=== PATIENT | female | born 1930 | race Caucasian/White ===

== ENCOUNTER 2016-07-11 23:00 | Inpatient (IN) | payer MEDICARE ==
[~2016-07-11] VITALS: Ht 165.1 cm; Wt 73.2 kg
[2016-07-11] MEDS ORDERED: BUMEX 1 MG TAB1 MG PO (23:40)
[2016-07-11] MEDS ORDERED: VITAMIN B-1000 MCG/M SQ (23:42)
[2016-07-11] MEDS ORDERED: CYMBALTA30 MG PO (23:43)
[2016-07-11] MEDS ORDERED: EXELON 13.3 M13.3 MG TRANSDERM (23:44)
[2016-07-11] MEDS ORDERED: GLUCOSAMINE & C1 CAP PO (23:44)
[2016-07-11] MEDS ORDERED: LANOXIN125 MCG PO (23:46)
[2016-07-11] MEDS ORDERED: METOPROLOL TART50 MG PO (23:48)
[2016-07-11] MEDS ORDERED: LOMOTIL TABLET1 TAB PO (23:48)
[2016-07-11] MEDS ORDERED: CLARITIN 10 MG10 MG PO (23:49)
[2016-07-11] MEDS ORDERED: MELATONIN 3 MG1 TAB PO (23:49)
[2016-07-11] MEDS ORDERED: MULTIPLE VITAMI1 TA1 PO (23:50)
[2016-07-11] MEDS ORDERED: GLUCOPHAGE500 MG PO (23:50)
[2016-07-11] MEDS ORDERED: PRADAXA75 MG PO ×2 (23:51→23:52)
[2016-07-11] MEDS ORDERED: PRAVACHOL40 MG PO (23:52)
[2016-07-11] MEDS ORDERED: REQUIP1 MG PO (23:53)
[2016-07-11] MEDS ORDERED: ALDACTONE25 MG PO (23:54)
[2016-07-11] MEDS ORDERED: VITAMIN D31000 UNIT PO (23:55)
[2016-07-11] MEDS ORDERED: TRAZODONE HCL150 MG PO (23:55)
[2016-07-11] MEDS ORDERED: VITAMIN E200 UNI1 PO (23:56)
[2016-07-11] MEDS ORDERED: ATIVAN0.5 MG PO (23:59)
[2016-07-12] MEDS ORDERED: NITROSTAT0.4 MG SL (00:02)
[2016-07-12] MEDS ORDERED: ULTRAM50 MG PO (00:02)
[2016-07-12] MEDS ORDERED: TYLENOL W/CODEI1 TAB PO (00:03)
[2016-07-12] MEDS ORDERED: ACETAMINOPHEN325 MG PO (00:04)
--- NOTE | 2016-07-12 00:33 | NUR ---
ARRIVED VIA WHEELCHAIR AND ASSISTED VAN FROM [place] AT 2300, ALERT AND ORIENTED TO SELF, CLAIMING TO BE THE PRESIDENT OF [employer], MEDICATIONS ENTERED, LABS ORDERED, UNABLE TO CONTACT FAMILY FOR CONSENTS; VOICE MAILBOX NOT SETUP, PHYSICIAN CALLED, ASSESSMENT HISTORY DEFERED UNTIL ABLE TO SPEEK WITH FAMILY, THREE RINGS ARE UNABLE TO BE REMOVED.
[2016-07-12 04:54] VITALS: BP 120/73
[2016-07-12 06:31] LABS: BASOPHILS 0.3 % (0.0-2.0); EOSINOPHILS 1.3 % (0-7); HEMATOCRIT 40.4 % (36.0-48.0); HEMOGLOBIN 13.5 g/dL (12-16); IMMATURE GRANULOCYTES 1.1 % (0-5); LYMPHOCYTES 30.6 % (15-50); MCH 29.3 pg (26.0-34.0); MCHC 33.4 g/dL (31.0-37.0); MCV 87.8 fL (80.0-100.0); MEAN PLATELET VOLUME 10.4 fL (7.4-10.4); MONOCYTES 9.7 % (2-11); PLATELET COUNT 130 10x3/uL (130-400); RDW 14.1 % (11.5-14.5); WBC 10.3 10x3/uL (4.8-10.8)
[2016-07-12 06:44] LABS: HEMOGLOBIN A1C 6.9 % (4.8-6.0)
[2016-07-12 06:49] LABS: ALBUMIN 3.3 g/dL (3.4-5.0); ANION GAP 12.6 mmol/L (8-16); BILIRUBIN - TOTAL 1.45 mg/dL (0.2-1.3); CARBON DIOXIDE 29.7 mmol/L (21.0-32.0); CHOL - HDL RATIO 4.2 ratio (2.3-4.1); CREATININE - SERUM 1.7 mg/dL (0.6-1.3); LDL-HDL RATIO 1.9 ratio (1.5-3.5); POTASSIUM - SERUM 3.3 mmol/L (3.5-5.1); PROTEIN - SERUM 7.3 g/dL (6.4-8.2); THYROID STIMULATING HORMONE 3.32 uIU/mL (0.36-3.74)
--- NOTE | 2016-07-12 07:30 | NUR ---
B) PATIENT IS AWAKE AND ALERT, SHE IS PLEASANT, SHE IS [place] AND SHE HAS BEEN TELLING EVERYONE THAT SHE LOVES THEM. DAIRY SCIENTIST STATED SHE WAS TELLING THEM THAT SHE WOULD GIVE THEM A MILLION DOLLARS, SHE HAS NOT SAID ANY OF THAT AT THIS TIME TO DAY SHIFT, BUT TELLS EVERYONE SHE LOVES THEM. SHE IS LABILE AND SHE LAUGHS THEN SHE BECOMES TEARFUL. PATIENT DOES NOT AMBULATE, BUT SHE DOES SIT IN A W/C AND CAN SELF PROPEL. SHE CAN STAND TO TRANSFER WITH ASSIST. I) PROVIDE PRESCRIBED MEDS AND REDIRECT NEEDED. R) PATIENT IS ORIENTED TO HER NAME ONLY, SHE DOES HAVE CONFUSION. P) CONTINUE PLAN OF CARE.
[2016-07-12 07:46] VITALS: BP 108/65
[2016-07-12 09:00] VITALS: BP 108/65
[2016-07-12 09:13] VITALS: BP 108/65
--- NOTE | 2016-07-12 09:19 | NUR ---
ATTEMPTED TO CALL PATIENT'S POINT OF CONTACT TO GET VERBAL CONSENTS AND HISTORY.
--- NOTE | 2016-07-12 11:03 | NUR ---
RECEIVED VERBAL CONSENTS BY PATIENT.
--- NOTE | 2016-07-12 11:24 | NUR ---
OBTAINED URINE FOR UA AND C&S, WILL TAKE TO LAB.
[2016-07-12 11:34] LABS: APPEARANCE CLEAR (CLEAR); BILIRUBIN NEGATIVE (NEGATIVE); COLOR YELLOW (YELLOW); GLUCOSE NEGATIVE (NEGATIVE); KETONE NEGATIVE (NEGATIVE); LEUKOCYTE ESTERASE NEGATIVE (NEGATIVE); NITRITE NEGATIVE (NEGATIVE); PROTEIN NEGATIVE (NEGATIVE); UROBILINOGEN NORMAL (NORMAL)
--- NOTE | 2016-07-12 11:40 | NUR ---
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 PROVIDED THEM WITH OUR PHONE NUMBER, HOURS TO CALL TO SPEAK TO HER, DAYS AND HOURS TO VISIT AND THEY PROVIDED A CODE WORD TO USE FOR SECURITY.
--- NOTE | 2016-07-12 13:00 | NUR ---
EMERGENCY DEPARTMENT DID COME TO STOCK LIFTER PATIENT'S BELONGINGS, SHE DOES STILL HAVE ON THREE RINGS, BUT SHE IS TOO EDEMATOUS TO REMOVE. TWO ARE ON ONE FINGER ONE IS WHITE METAL WITH THREE CLEAR STONES WITH TWO RECTANGULAR BAGUETTE STONES, THE OTHER IS WHITE METAL WITH 7 CLEAR STOMES, THE THIRD RING IS WHITE METAL WITH 2 SMALL CLEAR STONES AND THE CENTER STONE IS MISSING PRIOR TO HER ARRIVAL HERE.
[2016-07-12 19:30] VITALS: BP 105/54
--- NOTE | 2016-07-13 00:58 | NUR ---
B) Recieved sitting in the day room watching TV, alert and oriented to self, confused and unaware of surroundings, I) Administered perscribed medications, redirected as needed, R) Medication compliant, calm and cooperative with staff, P) continue plan of care, continue to monitor.
[2016-07-13 07:30] VITALS: BP 120/47
--- NOTE | 2016-07-13 13:29 | NUR ---
PT VERY LABILE AND JUMPS FROM TEARFUL, TO COOPERATIVE, TO AGGRESSIVE. PT IS GRANDIOSE AND MAKING DELUSIONAL STATEMENTS ABOUT BEING A "MCGHEE". PT "DISMISSES AND FIRES" ANY STAFF THAT DOES NOT DO WHAT SHE WANTS WHEN SHE WANTS. PT YELLING AND CURSING AT STAFF FOR NOT REMOVING ALL OTHER PTS FROM THE ROOM. EDUCATED ON APPROPRIATE BEHAVIOR BUT SHE DOES NOT UNDERSTAND AND REFUSES TO LISTEN. PT YELLING AT OTHER PTS AGAIN EDUCTED ON APPROPRIATE BEHAVIOR. ADMINISTERED MEDICATIONS AND PT TOOK ALL MEDICATIONS EXCEPT FOR HER POTASSIUM. EDUCATED ON IMPORTANCE OF MEDICATIONS BUT PT STILL REFUSED. PT REFUSES TO ELEVATE LEGS. WOUND CONSULT ORDERED FOR HER LEGS. PT PUT ON 1 CUP OF WATER PER HOUR PER DR. LAGUERRE DUE TO RISK OF INCREASED EDEMA AND PT'S NON-COMPLIANCE WITH ELEVATING LEGS AND ALLERGY TO LASIX. FALL PRECAUTIONS MAINTAINED. WILL CONTINUE TO MONITOR AND CONTINUE WITH PLAN OF CARE.
[2016-07-13 19:30] VITALS: BP 180/87
--- NOTE | 2016-07-13 19:48 | NUR ---
RECEIVED IN DAINING ROOM SETTING AT TABLE BY HERSELF EATING A SALAD. NOT VERBALIZING HER NEEDS AT THIS TIME. USES HANDS TO ATTEMPT TO ANSWER QUESTIONS. CALM AND COOPERATIVE WITH CARE AND ASSESSMENTS. ENCOURAGE TO VERBALIZE NEEDS. CONTINUES TO SET AT TABLE EATING. CONTINUE PLAN OF CARE
[2016-07-14 06:29] LABS: CALCIUM 9.3 mg/dL (8.5-10.1); CARBON DIOXIDE 30.3 mmol/L (21.0-32.0); CREATININE - SERUM 1.4 mg/dL (0.6-1.3); DIGOXIN 0.67 ng/mL (0.90-2.00); POTASSIUM - SERUM 3.3 mmol/L (3.5-5.1)
[2016-07-14 11:40] VITALS: BP 133/56
[2016-07-14 13:47] LABS: FOLATE (FOLIC ACID) - SERUM 10.6 ng/mL (>3.0)
--- NOTE | 2016-07-14 13:58 | PSY ---
PATIENT NAME:JEREMIAS PERALES MEDICAL RECORD: [id number] : 30 LOCATION:[facility] ADMISSION DATE: 07/11/16 ACCOUNT: [id number] PSYCHIATRIC EVALUATION DATE OF EVALUATION: 07/13/16 Psychiatric Evaluation IDENTIFYING DATA: The patient is 85 years old and she is admitted to the hospital on a voluntary basis. CHIEF COMPLAINT: Psychosis. HISTORY OF PRESENT ILLNESS: The patient is very bizarre and grandiose. She comes to us from [facility]. She has been telling people that she is the Sau[place] of [place] and in fact she has been talking with a fake Bulgarian accent. She also was claiming to be the president of [place], [place] and was telling all of the people, who work here, they are fired. She is not a very good historian. She is only speaking to me about things that are delusional and when I redirect her to ask about past history and other events that I want to know about, she either would not answer or tells me that she is unable to talk anymore. PAST MEDICAL HISTORY: Significant for diabetes, hypertension and congestive heart failure with atrial fibrillation. PAST PSYCHIATRIC HISTORY: Significant for an existing diagnosis of dementia, but no known history of psychiatric problems apart from that. I do have some early and second or even merchandising representative information that family is always believe she was mentally ill, but she never received any treatment. I do not have other details about that. FAMILY HISTORY: Unknown. ALLERGIES: SULFA AND LASIX. CURRENT MEDICATIONS: Include Bumex, Cymbalta, Exelon, digoxin, atropine, Lopressor, Claritin, melatonin, Glucophage, Pradaxa, Pravachol, Requip, Aldactone, trazodone, vitamin D3, vitamin E, Ultram And Tylenol with codeine. SOCIAL HISTORY: The patient lives at [facility]. She is . She does have adult children. She denies a history of drug or alcohol abuse and apart from this, I do not know of any other information and apart from this, I have no other information about her social or occupational functioning. MENTAL STATUS EXAMINATION: The patient is awake, alert and oriented to person and place only. Her mood is anxious. Her affect is constricted. Thought processes are disorganized and she has extensive delusional content and really is not cooperative with the mental status testing. She does deny that she wants to hurt herself or others as well as auditory and visual hallucinations. ASSETS: Supportive family members. LIABILITIES: Limited insight. 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 AXIS II: Deferred. AXIS III: Hypertension, diabetes, atrial fibrillation, chronic kidney disease, congestive heart failure. PLAN: At this time, the patient is clearly bizarre and delusional. What is not clear, is that she has an existing mental illness separate from the dementia. The symptoms that she is displaying are not entirely consistent with dementia, but at age 85, it is ____ for someone to be diagnosed with a chronic mental illness. I do plan to treat her symptomatically and gather more information from the family and by this, I mean, I will give her memory enhancing and mood stabilizing medications along with an antipsychotic medication. If she responds reasonably well to this, I will except to the outcome without being concerned about how to explain or label the symptoms. TRANSINT:[id number] Voice Confirmation ID: [id number] DOCUMENT ID: [id number] JARVIS MAGALLANES MD at 1358 CC: [id number] DICTATION DATE: 07/13/16 1229 TRANSMISSION SUPERINTENDENT: 07/13/16 1329 [facility] [place] [address] [place] [address]
--- NOTE | 2016-07-14 15:07 | NUR ---
RECEIVED THIS AM SITTING IN WHEELCHAIR IN HALLWAY AT NURSES STATION.IS ORIENTED TO PERSON AND YEAR.ATTEMPTED TO REORIENT TO PLACE WITH QUESTIONABLE RESULTS.IN TALKING WITH HER SHE REPORTS SHE IS 20 YEARS OLD AND IS THE NEXT GOD.LOWER EXTREMITIES SWOLLEN AND HAS SORES ON THEM.CALM TODAY AND SMILES ALOT,LOVES EVERYONE.WILL CONTINUE WITH PLAN OF CARE,MONITOR FOR CHANGES AND SAFETY.ALLOWS NURSE TO ELEVATE LEGS ON CHAIR FOR AWHILE.VISITED BY SKINCARE NURSE,ISIAH DALEY.
[2016-07-14 19:30] VITALS: BP 121/52
--- NOTE | 2016-07-14 19:45 | NUR ---
RECEIVED IN DINING ROOM. SETTING AT TABLE BY HERSELF READING A BOOK. CALM AND COOPERATIVE WITH CARE AND ASSESSMENT. CONFUSED. REDIRECT AND REORIENT NEEDED. CONTINUES TO SET QUIETLY BY HERSELF. CONTINUE PLAN OF CARE
--- NOTE | 2016-07-15 03:10 | NUR ---
RESTLESS IN ROOM. CLINBING OUT OF BED. ALARM SOUNDING. YELLING AT STAFF. VERBALLY ABUSIVE WITH REDIRECTION. TRANSFERED TO RECLINER AT NURSES STAION FOR ONE ON ONE CARE FOR SAFETY.
--- NOTE | 2016-07-15 08:12 | NUR ---
WOUND CARE CONSULT: PT HAS SCABS AND SORES ON BILATERAL LOWER EXTREMITIES (MORE ON THE LEFT). BILATERAL LE ARE EDEMATOUS. DURING THIS CONSULT PT WAS ALLOWING STAFF TO ELEVATE HER LEGS. RECOMMEND KEEPING LEGS ELEVATED WHILE UP IN CHAIR/WHEELCHAIR FREQUENTLY PT WILL ALLOW. HER BOTTOM IS EXCORIATED. CURRENTLY ZINC PASTE IS BEING USED DAILY AND NEEDED. RECOMMEND CHANGING TO CALMOSEPTINE CREAM TO ADDITIONAL PROTECTION FROM URINE/STOOL. WOUND CARE WILL CONTINUE TO MONITOR.
[2016-07-15 10:24] VITALS: Ht 165.1 cm; Wt 73.2 kg
--- NOTE | 2016-07-15 10:48 | NUR ---
Nutrition Note: Pt is eating 58% meal avg on a Diabetic diet. Will change diet to Regular to encourage po intake. Noted Glucose WNL. RD following.
--- NOTE | 2016-07-15 11:25 | NUR ---
Recieved this am, alert and oriented to her name but with grandiuos, delusion of being God, the BROOMCORN THRESHER of the facility and a Sau[place]. "I'm God, now go hither and tell everybody I'm 1000 years hold, if not you will ." Unable to refocus patient to reality, she continues with nonreality and " You all are fired without servance pay, dismiss yourselves." Very demanding but is labile and then will become quiet and cooperative. Compliant with medications. Self propels in wheelchair with functioning chair alarm in place. Participated in group. safety maintained. Continue plan of care.
--- NOTE | 2016-07-15 12:57 | PN ---
PATIENT:JEREMIAS PERALES MEDICAL RECORD: [id number] LOCATION:[facility] ADMISSION DATE: 07/11/16 PROGRESS NOTE DATE OF SERVICE: 07/14/2016 SUBJECTIVE: The patient's case was discussed with staff. She has no new complaint. OBJECTIVE: The patient is disorganized with limited insight about her condition. She denies that she would seek to harm herself or others, but she is still very delusional and insists that she is the nix of [place]. ASSESSMENT: No change in diagnoses. PLAN: At this point, I think I need additional history. Efforts will be made to contact the family. The patient has symptoms that would be consistent with a chronic mental illness, but there is no evidence that that is correct in the patient such a poor historian, it is difficult to determine if that is accurate. TRANSINT:[id number] Voice Confirmation ID: [id number] DOCUMENT ID: [id number] JARVIS MAGALLANES MD at 1257 CC: [id number] DICTATION DATE: 07/14/16 1403 PERMASTONE APPLICATOR: 07/14/16 2109 ADM IN [place] [id number] [place] [address]
[2016-07-15 13:55] VITALS: BP 131/66
--- NOTE | 2016-07-15 19:57 | NUR ---
RECEIVED IN DAYROOM. SETTING IN WHEELCHAIR. CONFUSED. ATTEMPTS TO STAND WITHOUT ASSIST. CALM AND COOPERATIVE WITH CARE AND ASSESSMENT. REDIRECT AND REORIENT NEEDED FOR SAFETY. CONTINUES TO SET IN WHEELCHAIR. CONTINUE PLAN OF CARE
[2016-07-15 20:00] VITALS: BP 127/59
--- NOTE | 2016-07-16 08:41 | PN ---
PATIENT:JEREMIAS PERALES MEDICAL RECORD: [id number] LOCATION:[facility] ADMISSION DATE: 07/11/16 PROGRESS NOTE DATE OF SERVICE: 07/15/2016 Psychiatric Progress Note SUBJECTIVE: The patient's case was discussed with staff. She has no new complaint. OBJECTIVE: The patient is in good behavioral control with limited insight about her condition. She tolerates her medicines well. ASSESSMENT: No change in diagnoses. PLAN: The patient will be started on Seroquel for some psychotic symptoms. She will be monitored for clinical changes associated with its use. Her long-term prognosis is guarded. TRANSINT:[id number] Voice Confirmation ID: [id number] DOCUMENT ID: [id number] JARVIS MAGALLANES MD at 0841 CC: [id number] DICTATION DATE: 07/15/16 1302 CLAM BED WORKER: 07/15/16 2120 ADM IN [facility] [address] [place] [address]
--- NOTE | 2016-07-16 11:30 | NUR ---
B) Patient is awake and alert and she still has grandiose delusions of being the "President" and or "God" She makes bizarre statements such as if you do something for her she will tell you that "You are sacred" If on the other hand you do not do something that she requests she will say "You're fired" or she will say "You'll without reprehension" Patient does not like to be redirected. I) Provide prescribed meds and redirect to reality as needed. R) Patient self propels in the w/c if she wants to do it at other times she is demanding to be catered to at that moment. Patient can stand to assist with transfers and she is compliant with her medications. P) Continue plan of care.
--- NOTE | 2016-07-16 15:09 | NUR ---
Patient has been acting out, yelling out, demanding, saying she is "God" She is the "President" she is not redirecting and she is firing everyone and becoming beligerant and screaming about it. Patient was removed to the dining room away from others as she would not redirect. Ativan 0.5 mg IM given in right hip.
--- NOTE | 2016-07-16 15:40 | NUR ---
Patient is calmer and quieter, she has stopped yelling, but remains delusional saying she is the "President".
--- NOTE | 2016-07-17 01:07 | NUR ---
B) Recieved sitting in the dinning room away from the other patients, alert and oriented to self, tells everyone that she is the president or God and that she has fired all the staff, demanding and self entilted, I) Administered perscribed medications, redirected as needed, R) Medication compliant, diffcult to redirect, P) Continue plan of care, continue to monitor.
--- NOTE | 2016-07-17 07:00 | NUR ---
Patient sitting on toilet and she tried to get up by herself, urine was on the floor and she slipped and fell on the floor on right side. Patient c/o pain to right hip, no displacement, can move minimally. Called patient's family left message. Called Dr. Rios and xray right hip ordered. Patient's v/s T. 97.9, BP 142/81, R. 20, P. 79, SP02 94%, cleansed patient and assisted into a hospital gown.
[2016-07-17 08:00] VITALS: BP 115/45
--- NOTE | 2016-07-17 14:24 | PN ---
PATIENT:JEREMIAS PERALES MEDICAL RECORD: [id number] LOCATION:[facility]112 ADMISSION DATE: 07/11/16 PROGRESS NOTE DATE OF SERVICE: 07/16/2016 Psychiatric Progress Note SUBJECTIVE: The patient's case was discussed with staff. She has no new complaint. OBJECTIVE: The patient has not made any delusional statements today. I do not think that is evidence that the delusions are better just that she is not as inclined to verbalize them. I am certain if I asked her about her grandiose, believes she would acknowledge them. Nevertheless, based on the fact that she is not just simply making obituary orders to the staff and patients, under the delusional belief that she is the nix or president of [place], I must say she is better. She will be maintained on current medicines, which I have reviewed and her long-term prognosis is guarded. I would recommend periodic screenings regarding her level of impairment and home situation. I do anticipate she can be transitioned back to the [facility] soon. TRANSINT:[id number] Voice Confirmation ID: [id number] DOCUMENT ID: [id number] JARVIS MAGALLANES MD at 1424 CC: [id number] DICTATION DATE: 07/16/16 1248 CHLORINATOR: 07/16/16 1549 ADM IN [place] [id number] [place] [address]
--- NOTE | 2016-07-17 14:40 | NUR ---
B) Patient is awake and alert, she is oriented to herself, she continues to be grandiose with her delusions, firing and hiring, saying she is "God". She can stand and walk a few steps, but unsteady. She self propels in a w/c. I) Provide prescribed meds. R) Patient is compliant with meds and she is sitting away from peers and reading, interacts at times with staff and peers. P) Continue plan of care.
[2016-07-17 19:00] VITALS: BP 109/76
--- NOTE | 2016-07-18 02:52 | NUR ---
B) recieved sitting in a wheelchair in the day room, alert and oriented to self only, grandious delusions of being god and president, firing everyone who does not do what she wants. I) administered perscribed medication and redirected as needed, R) medication compliant, difficult to redirect, P) Continue plan of care.
[2016-07-18 08:00] VITALS: BP 143/66
--- NOTE | 2016-07-18 14:39 | NUR ---
B) Patient is awake and alert, she is oriented to her name, although, she has grandiose delusions that she is the [place] or the President. She screams and yells and demands. Physical Therapy signed off on her today as she can ambulate very well without their assist, but with nursing staff she says "I can't" and feigns that she is not able, she has told everyone she couldn't move today because "I have a broken hip" Patient does not have a broken hip. Patient has had multiple loose stools and did provide her lomotil, but she makes demands. "I would like lomotil before each meal" I) Provide prescribed meds and redirect as needed. R) Patient is compliant with medications, but she continues with labile mood either saying she will give staff millions of dollars or finring them. P) Continue plan of care.
[2016-07-18 19:30] VITALS: BP 180/88
--- NOTE | 2016-07-18 20:35 | NUR ---
B) Continues to believe she has multiple fractures from a fall two days ago when in fact she does not. States that she is quite miserable constantly. Then stated that she has been a God 8 times. "I am at [facility] and I am [facility]." "I'm very happy here and I'd like to stay here forever." Propels self around in wheelchair, refuses to try to ambulate with or without walker despite PT evaluation that patient can do so. States she has broken her back, shoulder, and elbow. I) Administer medications as ordered, reorient and redirect PRN. Educate to recognize reality versus fantasy. R) Delusional, grandiose, labile, compliant with medications which she requested be given to her crushed this evening in apple sauce. P) Continue to monitor per plan of care.
--- NOTE | 2016-07-18 22:07 | NUR ---
Given Ultram 50mg po PRN for complaints of hip and elbow pain.
--- NOTE | 2016-07-18 23:10 | NUR ---
Sleeping at this time, analgesic PRN given earlier deemed effective.
[2016-07-19 06:13] LABS: RAPID PLASMA REAGIN Non Reactive (Non Reactive)
--- NOTE | 2016-07-19 14:51 | NUR ---
(B)RECEIVED PATIENT IN HER ROOM. ORIENTED TO SELF ONLY. POOR INSIGHT INTO THE REASON FOR HOSPITALIZATION RELATING "I THINK I HAVE ULCERS. I HAS LOSS OF MEMORY." MOBILE ON UNIT IN WHEELCHAIR HOWEVER IS CAPABLE OF AMBULATING AEB PHYSICAL THRAPY SIGNING OFF D/T HER ABILITY TO AMBUALTE 200 FEET WITH NO ASSISTANCE REQUIRED. GRANDIOSE DELUSIONS AEB "DONATE A 100 MILLION TO PHYSICAL THERAPY. THEY WILL HAVE IT TOMORROW." TELLS STAFF THEY ARE GOING TO RECEIVE MILLIONS OF DOLLARS FOR ALL THE HELP THEY PROVIDE. TALKS OF MEETING MR KAJAL BURDICK AT [facility]. THAT HE GOES TO THE [facility] OF [facility]. (I)ADMINSITER MEDS AND MONITOR COMPLIANCE. REORIENT NEEDED. (R)MED COMPLIANT. POOR REORIENTATION AND DOES APPEAR TO BE ABLE TO SEPARATE REALITY FROM FANTASY. CONTINUES WITH DELUSIONS OF GRANDEUR. (P)CONTINUE POC AND MAINTAIN FALL PRECAUTIONS.
[2016-07-19 19:30] VITALS: BP 140/59
--- NOTE | 2016-07-20 00:59 | NUR ---
PATIENT IN DAYROOM, PLEASANT AND SMILING. ORIENTED TO SELF ONLY. STILL GRANDIOSE, SAYING "I'M GOING TO GIVE YOU TEN MILLION DOLLARS TOMORROW." COMPLIANT WITH MEDICATION. CONTINUE TO MONITOR, CONTINUE PLAN OF CARE
--- NOTE | 2016-07-20 06:10 | PN ---
PATIENT:JEREMIAS PERALES MEDICAL RECORD: [id number] LOCATION:[facility] ADMISSION DATE: 07/11/16 PROGRESS NOTE DATE OF SERVICE: 07/18/2016 SUBJECTIVE: The patient asks the examiner, he would like to have a hundred million dollars. She also states that she went [facility] the "[facility]". OBJECTIVE: On exam, the patient exhibits slightly elevated mood. Affect is expansive. Speech is tangential. Content of thought shows moderate delusional ideation. Sensorium is unchanged. ASSESSMENT: No change in diagnosis. PLAN: 1. We will maintain current medication. 2. Continue supportive therapy. TRANSINT:[id number] Voice Confirmation ID: [id number] DOCUMENT ID: [id number] CHARLIE BRASHER III, MD at 0610 CC: [id number] DICTATION DATE: 07/18/16 1150 SHELLFISH CHECKER: 07/18/16 1656 ADM IN [place] [id number] [place] [address]
[2016-07-20 10:51] VITALS: BP 113/75
--- NOTE | 2016-07-20 11:54 | NUR ---
RECEIVED THIS AM IN BED.TRANSFERS SELF TO WHEELCHAIR.IS ORIENTED TO SELF AND HOSPITAL BUT HAS NO INSITE INTO WHY SHE IS HERE.STATES,"I FELL 5 TIMES." ALSO STATES,"I AM THE PRESIDENT." WAS OBSERVED YELLING OUT ANGRIELY TO ANOTHER PATIENT THIS MORNING AT BREAKFAST TABLE AND STATED TO THIS NURSE "SHE NEVER SHUTS UP."WILL CONTINUE WITH PLAN OF CARE AND MONITOR FOR CHANGES AND SAFETY.
--- NOTE | 2016-07-20 19:48 | NUR ---
RECEIVED IN DAYROOM SETTING IN RECLINER WITH HER FEET UP WATCHING TV. PEERS AT HER SIDE. CALM AND COOPERATIVE WITH CARE AND ASSESSMENT. ORIENTED TO SELF ONLY. REDIRECT AND REORIENT NEEDED. CONTINUES TO SET QUIETLY WATCHING TV. CONTINUE PLAN OF CARE
[2016-07-21 08:10] VITALS: BP 143/103
[2016-07-21 09:30] VITALS: BP 142/88
--- NOTE | 2016-07-21 14:11 | PN ---
PATIENT:JEREMIAS PERALES MEDICAL RECORD: [id number] LOCATION:[facility]112 ADMISSION DATE: 07/11/16 PROGRESS NOTE DATE OF SERVICE: 07/17/2016 SUBJECTIVE: The patient's case was discussed with staff. She has no new complaint. OBJECTIVE: The patient is in good behavioral control with limited insight about her condition. She is still not eating adequately and still has a number of delusions. She is taking her medications and I am hopeful that over the next few days, it will become effective. ASSESSMENT: No change in diagnoses. PLAN: The patient will be treated with current medicines, but I am going to add Megace to the regimen to hopefully stimulate her appetite. TRANSINT:[id number] Voice Confirmation ID: [id number] DOCUMENT ID: [id number] JARVIS MAGALLANES MD at 1411 CC: [id number] DICTATION DATE: 07/17/16 1519 SWITCHBOARD OPERATOR: 07/17/16 1538 ADM IN [place] [id number] [place] [id number]
--- NOTE | 2016-07-21 17:06 | NUR ---
RECEIVED THIS AM IN BED.TRANSFERS SELF TO WHEELCHAIR.PROPELLS SELF IN WHEELCHAIR.IS ORIENTED TO SELF ONLY.THINKS SHE IS THE PRESIDENT AND AWARDS PEOPLE LARGE SUMS OF MONEY THEY CAN SPEND AT [facility].HAS BEEN CALM AND COOPERATIVE MOST OF DAY BUT DOES BECOME ANGRY WHEN SHE DOESN'T GET HER WAY,EX: WANTS TO WATCH [employer] PROGRAMS,BUT PEERS DON'T.WILL CONTINUE WITH PLAN OF CARE,MONITOR FOR CHANGES AND SAFETY.
--- NOTE | 2016-07-21 19:55 | NUR ---
RECEIVED IN DAYROOM. SETTING IN RECLINING CHAIR WITH HER FEET UP READING A BOOK. STATES PAIN AT 7 ART THIS TIME. CALM AND COOPERATIVE WITH CARE AND ASSESSMENTS. ENCOURAGE TO EXPRESS NEEDS AND FEELINGS. CONTINUE TO REST QUIETLY IN RECLINER. CONTINUE PLAN OF CARE
[2016-07-21 21:45] VITALS: BP 117/64
[2016-07-22 07:00] LABS: CALCIUM 9.3 mg/dL (8.5-10.1); CARBON DIOXIDE 31.2 mmol/L (21.0-32.0); CREATININE - SERUM 1.5 mg/dL (0.6-1.3); POTASSIUM - SERUM 4.2 mmol/L (3.5-5.1)
[2016-07-22 09:21] VITALS: BP 124/70
--- NOTE | 2016-07-22 09:30 | NUR ---
Nutrition Follow Up: Chart reviewed. Pt is eating 92% meal avg on a Regular diet. Wt loss 1# since admit. +BM 07/21/16. Meds noted including Megace, Vit B12, Vit E, Metformin, MV, Vit D, Bumex. Labs noted - BUN, Cr, Glucose slightly elevated. Pt with excellent po intake at this time. Rec continue current diet. Will continue to provide selective menus and honor food preferences. RD following.
--- NOTE | 2016-07-22 12:27 | NUR ---
B.) Received patient this am, alert and oriented to self only, has no insight to place, but states she is here for her memory and is " president " of this place. I.) Administer medications and monitor compliance. Redirect and reorient as need. Refocus to reality versus nonreality. Monitor safety. R.) Compliant with medications, grandiose delusions as evidence by " you are now rehired, 100 million dollars for you, and everyone here today, I'm your president." Continues with delusions of grandeur, unable to separate reality from nonreality. Self propels in w/c, safety maintained. P.) Continue plan of care.
--- NOTE | 2016-07-22 14:14 | PN ---
PATIENT:JEREMIAS PERALES MEDICAL RECORD: [id number] LOCATION:[facility] ADMISSION DATE: 07/11/16 PROGRESS NOTE DATE OF SERVICE: 07/21/2016 Psychiatric Progress Note SUBJECTIVE: The patient's case was discussed with staff. She has no new complaint. OBJECTIVE: The patient is in good behavioral control with limited insight about her condition. She tolerates her medicines well. ASSESSMENT: No change in diagnoses. PLAN: The patient is still having some delusions, but they are less intense. I am going to discontinue her trazodone secondary to inadequate amount of time she is sleeping. TRANSINT:[id number] Voice Confirmation ID: [id number] DOCUMENT ID: [id number] JARVIS MAGALLANES MD at 1414 CC: [id number] DICTATION DATE: 07/21/16 1429 REINFORCING METAL WORKER: 07/21/162006 ADM IN [facility] [address] [place] [address]
[2016-07-22 19:39] VITALS: BP 129/62
--- NOTE | 2016-07-22 19:53 | NUR ---
RECEIVED IN DAYROOM. SETTING IN RECLINING CHAIR WITH PEERS BY HER SIDE. WATCHING TV. NOT SOCIALIZING. NO GRANDIOSE STAEMENTS MADE THIS EVENING. CALM AND COOPERATIVE WITH CARE AND ASSESSMENT. CONTINUES TO SET CALMLY IN RECLINER. CONTINUE PLAN OF CARE
[2016-07-23 08:00] VITALS: BP 125/67
--- NOTE | 2016-07-23 16:49 | NUR ---
RECEIVED THIS AM SITTING IN WHEELCHAIR IN HALLWAY AT [facility].IS ORIENTED TO PERSON AND HOSPITAL ONLY.THINKS SHE IS THE PRESIDENT BUT REMEMBERS WATCHING THE PRESIDENTAL ADDRESS TO [place]ESS LAST NIGHT AND STATES" IT WAS WONDERFUL."AWARDED THIS NURSE A MILLION DOLLARS TO SPEND AT [facility].CALM AND COOPERATIVE.COMPLIANT WITH MEDS.SOCIALIZES WITH PEERS AND STAFF.WILL CONTINUE WITH PLAN OF CARE,MONITOR FOR CHANGES AND SAFETY.
[2016-07-23 20:00] VITALS: BP 132/86
--- NOTE | 2016-07-24 02:59 | NUR ---
PATIENT IN DAYROOM, WATCHING T.V. PATIENT ORIENTED TO PERSON AND PLACE, NOT TIME NOR SITUATION. PATIENT COMPLAINED OF BEING COLD AND HIP PAIN. GAVE PATIENT WARM BLANKET AND REPOSITIONED. PATIENT DELUSIONAL, OFFERING A MILLION DOLLARS. PATIENT REORIENTED. CONTINUE TO MONITOR, CONTINUE PLAN OF CARE.
[2016-07-24 08:10] VITALS: BP 120/61
--- NOTE | 2016-07-24 11:30 | NUR ---
B) Patient is alert and awake, she is oriented to herself only. She can self propel in her w/c and she can stand and assist with transfers. She can ambulate minimally. Patient has delusions of grandeur. I) Provide prescribed meds, redirect to appropriate behavior. R) Patient is compliant with meds, she keeps herself busy withreading. P) Continue plan of care.
--- NOTE | 2016-07-24 12:38 | PN ---
PATIENT:JEREMIAS PERALES MEDICAL RECORD: [id number] LOCATION:[facility] ADMISSION DATE: 07/11/16 PROGRESS NOTE DATE OF SERVICE: 07/22/2016 SUBJECTIVE: The patient's case was discussed with staff. She has no new complaint. OBJECTIVE: The patient denies intent to harm herself or others. She is still very delusional. ASSESSMENT: No change in diagnoses. PLAN: Current medicines and therapies have been reviewed. She will be treated with a slightly higher dose of Aricept. Her long-term prognosis is guarded. TRANSINT:[id number] Voice Confirmation ID: [id number] DOCUMENT ID: [id number] JARVIS MAGALLANES MD at 1238 CC: [id number] DICTATION DATE: 07/22/16 1427 FUR SEWER: 07/22/16 2231 ADM IN [place] [id number] [place] [address]
--- NOTE | 2016-07-24 12:38 | PN ---
PATIENT:JEREMIAS PERALES MEDICAL RECORD: [id number] LOCATION:[facility] ADMISSION DATE: 07/11/16 PROGRESS NOTE DATE OF SERVICE: 07/23/2016 SUBJECTIVE: The patient's case was discussed with staff. She has no new complaint. OBJECTIVE: The patient is in good behavioral control with limited insight about her condition. She is much less delusional than she has previously been. In fact, she is answering to her name as opposed to insisting that we call her nix or Mrs. president. ASSESSMENT: No change in diagnoses. PLAN: The patient's current medications have been reviewed and will be maintained. She clearly has improved significantly. Her long-term prognosis is guarded. TRANSINT:[id number] Voice Confirmation ID: [id number] DOCUMENT ID: [id number] JARVIS MAGALLANES MD at 1238 CC: [id number] DICTATION DATE: 07/23/16 1405 DRUG AND ALCOHOL COUNSELOR: 07/23/16 1826 ADM IN [place] [id number] [place] [address]
[2016-07-24 19:30] VITALS: BP 130/71
--- NOTE | 2016-07-25 00:09 | NUR ---
Patient in dayroom, in corner looking at the books. She is oriented to person, place, time. When asked why she was here, she said because she has alzheimer's. She did say she got mad and shouldn't have. She said the other residents were making too much noise and she became very upset. Next time, she said she will go to the corner and read. She is pleasant, non-grandious at this time. She does have complaints of pain, 10 per pain scale, pain in hip and back. 50 mg of Ultram given p.o.
[2016-07-25 09:40] VITALS: BP 118/79
--- NOTE | 2016-07-25 11:05 | NUR ---
B) Patient is calm and cooperative, she is listening to redirection, she keeps herslef entertained by reading or coloring. Patient has had two loose BMs today, held am senna. Provided hemorrhoid suppository, but patient was not able to hold it and pushed it out. Patient has not made any reference to being the President or [place] today, she self propels in the w/c and she is has been interacting well in groups and with staff and peers. I) Provide prescribed medications. R) Patient is compliant with meds and unit milieu. She has not made any grandiose statements today. P) Continue plan of care.
--- NOTE | 2016-07-25 13:42 | PN ---
PATIENT:JEREMIAS PERALES MEDICAL RECORD: [id number] LOCATION:[facility] ADMISSION DATE: 07/11/16 PROGRESS NOTE DATE OF SERVICE: 07/24/2016 SUBJECTIVE: The patient's case was discussed with staff. She has no new complaint. OBJECTIVE: The patient is in good behavioral control and has no thoughts of harming herself or others. She is generally tolerating her medicines well. ASSESSMENT: No change in diagnoses. PLAN: I anticipate the patient can be transitioned out of the hospital soon if this level of improvement is maintained. Her long-term prognosis is guarded. TRANSINT:[id number] Voice Confirmation ID: [id number] DOCUMENT ID: [id number] JARVIS MAGALLANES MD at 1342 CC: [id number] DICTATION DATE: 07/24/16 1249 MUSEUM EXHIBIT TECHNICIAN: 07/24/162037 ADM IN [place] [id number] [place] [id number]
[2016-07-25 19:30] VITALS: BP 126/79
--- NOTE | 2016-07-26 02:30 | NUR ---
B) Recieved sitting in a teo chair in the day room, alert and oriented to self, patient upset with another loud patient and was yelling at her to be quiet, I) Administered perscribed medications, redirected as needed, R) Medication compliant, after being placed in bed patient disrobed and tore her brief up in small pieces and threw them in the floor, P) Continue plan of care, continue to monitor.
[2016-07-26 08:00] VITALS: BP 115/80
--- NOTE | 2016-07-26 11:19 | NUR ---
B) Patient is awake and alert, she is oriented x2, she has been pleasant, no grandiose statements today. No aggression noted and she has been trying to assist herself more. I) Provide prescribed meds. R) Patient is compliant with meds and unit milieu. P) Continue plan of care.
[2016-07-26 19:30] VITALS: BP 170/74
--- NOTE | 2016-07-27 01:12 | NUR ---
B) Recieved sitting in the day room, alert and oriented to self, calm and pleasant this shift, I) Administered perscribed medications, redirected as needed, R) Medication compliant, better today: less grandious, no mention of being president, P) Continue plan of care, continue to monitor.
[2016-07-27 07:00] VITALS: BP 138/86
--- NOTE | 2016-07-27 16:35 | NUR ---
PT IS ALERT AND ORIENTED TO SELF ONLY. PT DENIES PAIN. NO HALLUCINATIONS OR DELUSIONS NOTED OR REPORTED. PT IS COOPERATIVE WITH STAFF AND IS COMPLIANT WITH MED'S AND CARE. NO AGGRESSION NOTED. PT ISOLATES TO HERSELF A LOT BUT IS SOCIAL AT TIMES WITH BOTH STAFF AND PEERS. SAFETY MEASURES ARE IMPLEMENTED. WILL CONTINUE WITH PLAN OF CARE. WILL CONTINUE TO MONITOR.
[2016-07-27 19:30] VITALS: BP 188/96
--- NOTE | 2016-07-27 20:12 | NUR ---
RECEIVED IN PATIENT BATHROOM. WATERY BM. ASSISTED TO DAYROOM IN WHEELCHAIR. NO GRANDIOSE STATEMENTS MADE THIS EVENING. CALM AND COOPERATIVE WITH CARE AND ASSESSMENTS. SOCIALIZING WITH STAFF AND PEERS. ENCOURAGE TO EXPRESS NEEDS. CONTINUE TO RELAX SOCIALIZING WITH PEERS. CONTINUE PLAN OF CARE
[2016-07-28 08:34] VITALS: BP 110/68
--- NOTE | 2016-07-28 10:20 | NUR ---
Alert and oriented to name and place, states she is here because, " I lost my memory." Calm and cooperative with care. No grandioUs statements made. No aggression or demanding behavior. Compliant with medications. Participates in group. Safety maintained. Continue with plan of care.
--- NOTE | 2016-07-28 13:41 | PN ---
PATIENT:JEREMIAS PERALES MEDICAL RECORD: [id number] LOCATION:[facility] ADMISSION DATE: 07/11/16 PROGRESS NOTE DATE OF SERVICE: 07/25/2016 SUBJECTIVE: The patient's case was discussed with staff. She has no new complaint. OBJECTIVE: The patient continues to insist that she is the president of [place], but she is much less angry and agitated about it. She denies that she would seek to harm herself or others. ASSESSMENT: No change in diagnoses. PLAN: The patient will be maintained on current medicines, which I have reviewed. Her long-term prognosis is guarded. I am going to change her antipsychotic to Zyprexa and discontinue the Seroquel secondary to the lack of continued progress in her improvement with regard to the psychotic symptoms. TRANSINT:[id number] Voice Confirmation ID: [id number] DOCUMENT ID: [id number] JARVIS MAGALLANES MD at 1341 CC: [id number] DICTATION DATE: 07/25/16 1351 CUTTING MACHINE OFFBEARER: 07/25/16 2033 ADM IN [place] [id number] [place] [address]
[2016-07-28] MEDS ORDERED: LIPITOR10 MG PO (13:45)
[2016-07-28] MEDS ORDERED: MEGACE40 MG PO (13:45)
[2016-07-28] MEDS ORDERED: ULTRAM50 MG PO (13:46)
[2016-07-28] MEDS ORDERED: ZYPREXA2.5 MG PO (13:47)
[2016-07-28] MEDS ORDERED: NAMENDA5 MG PO (13:47)
[2016-07-28] MEDS ORDERED: K-DUR20 MEQ PO (13:47)
[2016-07-28] MEDS ORDERED: SENNA8.6 MG PO (13:47)
[2016-07-28] MEDS ORDERED: LIDODERM 5 %1 PATCH TRANSDERM (13:48)
[2016-07-28] MEDS ORDERED: ANUSOL-HC25 MG RC (13:48)
[2016-07-28 19:20] VITALS: BP 135/78
--- NOTE | 2016-07-28 19:49 | NUR ---
RECEIVED IN DINING ROOM AT TABLE BY RESELF READING. NO GRANDIOSE STATEMENTS MADE THIS EVENING. CALM AND COOPERATIVE WITH CARE AND ASSESSMENTS. CONTINUES TO SIT QUIETLY IN DINING AREA. CONTINUE PLAN OF CARE
[2016-07-29 08:34] VITALS: BP 111/64
--- NOTE | 2016-07-29 09:26 | NUR ---
Nutrition Follow Up: Chart reviewed. Pt is eating 67% meal avg on a Regular diet. +BM 07/28/16. No new wt to assess. Meds noted including Megace, Metformin, Vit B12, Vit D, Vit E, MV, Bumex. Glucose WNL. Pt with fair po intake at this time. Rec continue current diet. Will continue to send selective menus and honor food preferences. RD following.
--- NOTE | 2016-07-29 09:35 | NUR ---
Alert and oriented to name, place and states she is here because of " my [place]." Calm and cooperative with care. No behavior of granduer. No aggression. Compliant with medications. Self propels in W/C. Safety maintained. Continue with plan of care to discharge today.
--- NOTE | 2016-07-29 13:30 | NUR ---
[facility] staff here to transport patient back to their facility. Discharged without incident. All personal belonging released to patient. Report called to Angie BARGER.
--- NOTE | 2016-07-29 15:13 | PN ---
PATIENT:JEREMIAS PERALES MEDICAL RECORD: [id number] LOCATION:[facility] ADMISSION DATE: 07/11/16 PROGRESS NOTE DATE OF SERVICE: 07/28/2016 SUBJECTIVE: The patient's case was discussed with staff. She has no new complaint. OBJECTIVE: The patient denies intent to harm herself or others. She generally tolerates her medicines well. ASSESSMENT: No change in diagnoses. PLAN: Current medicines have been reviewed and will be maintained. I anticipate the patient can reasonably be transitioned out of the hospital soon if this level of improvement is maintained. TRANSINT:[id number] Voice Confirmation ID: [id number] DOCUMENT ID: [id number] JARVIS MAGALLANES MD at 1513 CC: [id number] DICTATION DATE: 07/28/16 1349 POSTBED STITCHER: 07/28/162055 DIS IN 07/29/16 [place] [id number] [place] [address]
--- NOTE | 2016-07-30 16:33 | PN ---
PATIENT:JEREMIAS PERALES MEDICAL RECORD: [id number] LOCATION:[facility] ADMISSION DATE: 07/11/16 PROGRESS NOTE DATE OF SERVICE: 07/29/2016 SUBJECTIVE: The patient's case was discussed with staff. She has no new complaint. OBJECTIVE: The patient is in good behavioral control with limited insight about her condition. She does tolerate her medicines well. ASSESSMENT: No change in diagnoses. PLAN: Current medicines and therapies have been reviewed and will be maintained. She is not acutely dangerous and will be transitioned out of the hospital today. TRANSINT:[id number] Voice Confirmation ID: [id number] DOCUMENT ID: [id number] JARVIS MAGALLANES MD at 1633 CC: [id number] DICTATION DATE: 07/29/16 1514 SERVICE DISPATCHER: 07/29/16 1835 DIS IN 07/29/16 [place] [id number] [place] [address]
--- NOTE | 2016-08-04 14:16 | DS ---
PATIENT:JEREMIAS PERALES :30 MEDICAL RECORD: [id number] DISCHARGE SUMMARY ADMISSION DATE: 07/11/16 DISCHARGE DATE: 07/29/16 IDENTIFYING DATA: The patient is 85 years old and she was admitted to the hospital on a voluntary basis secondary to psychosis. The patient was very bizarre and grandiose. She came to us from a local [place] [facility] where she had been telling people that she was the [facility] and that she was the president of [place], [place]. She was giving orders to various staff members and then telling them that they were fired. She was admitted to the hospital for evaluation and treatment of these bizarre symptoms. HOSPITAL COURSE: The patient was admitted to the hospital and fully evaluated from both a medical, psychological, and social standpoint. She was found to have a dementia of the Alzheimer's type with psychotic symptoms and although her psychotic symptoms were somewhat atypical of a dementia, she nevertheless successfully treated with both an antipsychotic and mood stabilizing agent. She was also given memory enhancing agents. She subsequently showed improvement and was transitioned out of the hospital and back to the [place] [facility] [place]. 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 AXIS II: None. AXIS III: Hypertension, diabetes, atrial fibrillation, chronic kidney disease, congestive heart failure. AXIS IV: Moderate stressors. AXIS V: Global assessment of functioning is 40. PLAN: At the time of discharge, the patient was in good behavioral control and had no active thoughts of harming herself or others. She was tolerating her medicines well. Her long-term prognosis is guarded. TRANSINT:[id number] Voice Confirmation ID: [id number] DOCUMENT ID: [id number] JARVIS MAGALLANES MD at 1416 CC: [id number] DICTATION DATE: 08/01/16 1447 SPINNERET CLEANER: 08/02/16 0302 DIS IN 07/29/16 [place] [id number] [place] [address]
== END 2016-07-29 13:30 | DRG 57 ==
LOC: D.PSYCH 23:00
PROVIDERS: Family Medicine; ADMIT Psychiatry & Neurology Psychiatry
DX: G30.1 Alzheimer's disease with late onset (principal); F02.81 Dementia in other diseases classified elsewhere, unspecified severity, with behavioral disturbance; I13.0 Hypertensive heart and chronic kidney disease with heart failure and stage 1 through stage 4 chronic kidney disease, or unspecified chronic kidney disease; I50.22 Chronic systolic (congestive) heart failure; F41.8 Other specified anxiety disorders; E11.22 Type 2 diabetes mellitus with diabetic chronic kidney disease; N18.9 Chronic kidney disease, unspecified; I48.91 Unspecified atrial fibrillation; E87.6 Hypokalemia; E78.5 Hyperlipidemia, unspecified; G25.81 Restless legs syndrome; E53.8 Deficiency of other specified B group vitamins; E55.9 Vitamin D deficiency, unspecified; Z74.09 Other reduced mobility; M25.511 Pain in right shoulder; W19.XXXA Unspecified fall, initial encounter